=== PATIENT | male | born 1945 | race Caucasian/White ===

== ENCOUNTER 2018-01-05 09:14 | Day surgery (SDC) | payer MEDICARE ==
[~2018-01-05] VITALS: Ht 182.9 cm; Wt 79.2 kg
[~2018-01-05 09:14] MED LIST: ACEDIPPM PO; ALBU90OI; AMLO5 PO; ASCO500; ASCO500 PO; ASPI325 PO; ATOR10 PO; Amlodipine Besyl5 MG PO; Aspir 8181 MG PO; B Complex #11 EACH; CALCIUM-MAGNES1 EAC3 PO; CARV6.25 PO; CLOP75 PO; CYCL10 PO; Coreg6.25 MG PO; DIPH50 PO; Daily Multiple1 EACH PO; FISH OIL 1,0001 EAC1; FISH1000 PO; FLAX PO; GABA300 PO; GABA600 PO; GARLIC PO; Garlic X400 MG PO; LOSARTAN POTASS50 MG PO; MORP15ER PO; MULVITMIND PO; NEBI5 PO; NITR.4TPA TOP; OMEG1CAP30 PO; OMEP20ER PO; OXYC10ER PO; OXYC5 PO; POTASSIUM99 MG; ROSU5 PO; TIOT18; UBID100 PO; VITAMIN D32000 UNIT PO; VITB100 PO
== END 2018-01-05 11:25 | disposition home or self-care (01) ==
LOC: ORSCSDS 09:14
PROVIDERS: Surgery
PROC: 0DBP8ZX Excision of Rectum, Via Natural or Artificial Opening Endoscopic, Diagnostic (ICD-10-PCS; principal; 2018-01-05 10:30)
PROC: 0DBM8ZX Excision of Descending Colon, Via Natural or Artificial Opening Endoscopic, Diagnostic (ICD-10-PCS; principal; 2018-01-05 10:30)
PROC: 0DBK8ZX Excision of Ascending Colon, Via Natural or Artificial Opening Endoscopic, Diagnostic (ICD-10-PCS; principal; 2018-01-05 10:30)
DX: Z12.11 Encounter for screening for malignant neoplasm of colon (principal); D12.2 Benign neoplasm of ascending colon; D12.4 Benign neoplasm of descending colon; K62.1 Rectal polyp; Z86.010 Personal history of colon polyps; I10 Essential (primary) hypertension; E78.5 Hyperlipidemia, unspecified; I25.10 Atherosclerotic heart disease of native coronary artery without angina pectoris; I73.9 Peripheral vascular disease, unspecified; J44.9 Chronic obstructive pulmonary disease, unspecified; Z79.01 Long term (current) use of anticoagulants; Z79.82 Long term (current) use of aspirin; Z79.899 Other long term (current) drug therapy; F17.210 Nicotine dependence, cigarettes, uncomplicated
CPT/HCPCS: 88305

== ENCOUNTER → 2018-06-21 | Outpatient (CLI) | payer MEDICARE ==
[2018-06-21 20:01] LABS: Alanine Aminotransfer (ALT/SGP 17 U/L (12-78); Albumin, Blood 3.6 g/dL (3.4-5.0); Albumin/Globulin Ratio 0.9 (0.8-1.8); Alk Phos 100 U/L (50-136); Anion Gap 5 mmol/L (6-16); Aspartate Aminotrans (AST/SGOT 15 U/L (12-37); Bilirubin, Total 0.3 mg/dL (0.1-1.0); Blood Urea Nitrogen 12 mg/dL (8-24); CHOL/HDL RATIO 6.8; CO2, Blood 28 mmol/L (21-32); Calcium, Blood 8.6 mg/dL (8.5-10.1); Chloride, Blood 103 mmol/L (98-108); Cholesterol 177 mg/dL (50-200); Globulin, Blood 3.9 g/dL (2.2-4.0); Glucose, Blood 84 mg/dL (70-99); HDL Cholesterol 26 mg/dL (>39); LDL/HDL RATIO 3.3; Low Density Lipoprotein Chol 85 mg/dL (0-110); Potassium, Blood 4.1 mmol/L (3.5-5.5); Sodium, Blood 136 mmol/L (136-145); Total Protein, Blood 7.5 g/dL (6.4-8.2); Triglycerides 328 mg/dL (30-160); Very Low Density Lipoprot Chol 65 mg/dL (6-32)
[2018-06-21 20:02] LABS: Bun/Creatinine Ratio 11.9 (12.0-20.0); Creatinine, Blood 1.01 mg/dL (0.60-1.20); Glomerular Filtration Rate >60 (60-)
== END | disposition home or self-care (01) ==
LOC: LAB SHORT 17:36 → LAB 17:36
PROVIDERS: Nurse Practitioner Family
DX: I25.10 Atherosclerotic heart disease of native coronary artery without angina pectoris (principal); E11.9 Type 2 diabetes mellitus without complications
CPT/HCPCS: 80053; 80061

== ENCOUNTER 2018-07-25 06:29 | Inpatient (IN) | payer MEDICARE ==
[~2018-07-25] VITALS: Ht 182.9 cm; Wt 78.0 kg
[2018-07-25] MEDS ORDERED: OXYC5 PO (06:50)
[2018-07-25 07:28] LABS: BASOPHILS ABSOLUTE AUTO 0.05 K/mm3 (0.00-0.23); BASOPHILS PERCENT AUTO 1 % (0-2); EOSINOPHILS ABSOLUTE AUTO 0.21 K/mm3 (0.00-0.68); EOSINOPHILS PERCENT AUTO 2 % (0-6); Hematocrit 40.6 % (37.0-53.0); Hemoglobin 13.4 g/dL (13.5-17.5); IMMATURE GRAN ABSOLUTE AUTO 0.05 K/mm3 (0.00-0.10); IMMATURE GRAN PERCENT AUTO 1 % (0-1); LYMPHOCYTES ABSOLUTE AUTO 3.47 K/mm3 (0.84-5.20); LYMPHOCYTES PERCENT AUTO 35 % (21-46); MONOCYTES ABSOLUTE AUTO 0.81 K/mm3 (0.16-1.47); MONOCYTES PERCENT AUTO 8 % (4-13); Mean Corpuscular HGB 30.3 pg (26.0-34.0); Mean Corpuscular Volume 92 fL (80-100); Mean Platelet Volume 9.9 fL (9.1-12.4); NEUTROPHILS ABSOLUTE AUTO 5.42 K/mm3 (1.96-9.15); NEUTROPHILS PERCENT AUTO 54 % (41-73); Platelet Count 293 K/mm3 (150-400); RDW Coefficient Variation 12.4 % (11.7-14.2); RDW Standard Deviation 41.9 fL (35.1-46.3); Red Blood Cell Count 4.42 M/mm3 (4.30-5.90); White Blood Cell Count 10.01 K/mm3 (4.00-11.30)
[2018-07-25 07:34] LABS: Alanine Aminotransfer (ALT/SGP 14 U/L (12-78); Albumin, Blood 3.5 g/dL (3.4-5.0); Albumin/Globulin Ratio 0.9 (0.8-1.8); Alk Phos 89 U/L (50-136); Anion Gap 7 mmol/L (6-16); Aspartate Aminotrans (AST/SGOT 20 U/L (12-37); Bilirubin, Total 0.4 mg/dL (0.1-1.0); Blood Urea Nitrogen 14 mg/dL (8-24); Bun/Creatinine Ratio 12.8 (12.0-20.0); CO2, Blood 28 mmol/L (21-32); Calcium, Blood 8.5 mg/dL (8.5-10.1); Chloride, Blood 106 mmol/L (98-108); Creatinine, Blood 1.09 mg/dL (0.60-1.20); Globulin, Blood 3.8 g/dL (2.2-4.0); Glomerular Filtration Rate >60 (60-); Glucose, Blood 113 mg/dL (70-99); Sodium, Blood 141 mmol/L (136-145); Total Protein, Blood 7.3 g/dL (6.4-8.2); Troponin I 0.158 ng/mL (0.000-0.040)
[2018-07-25 08:40] LABS: International Normalized Ratio 0.99; Prothrombin Time Results 10.5 Sec (9.7-11.5)
--- NOTE | 2018-07-25 09:37 | NUR ---
ADMIT FROM ER PT ARRIVED VIA RNATALIE AFTER RECEIVING REPORT FROM [facility]. PT ALERT AND IN NO DISCOMFORT. CONTINUE POT.
[2018-07-25] MEDS ORDERED: TIOT18 INH (10:13)
[2018-07-25 12:59] LABS: Creatine Kinase MB 1.4 ng/mL (0.0-3.6); Creatine Kinase MB Index 1.8 (0.0-4.0); Troponin I 0.263 ng/mL (0.000-0.040)
--- NOTE | 2018-07-25 17:36 | NUR ---
EVENINGNOTE PT SITTING ON THE SIDE OF THE BED. SR. PT HAS DENIED CHEST PAIN ALL DAY. HEPARIN GTT INFUSING AT 15 UNITS/KG/HR. PHARMACY TO MANAGE. PT UP AD ALYSIA IN ROOM. HE DID CONSENT WITH DR WATKINS TO AN ANGIOGRAM TOMORROW. NURSING COMMERCIAL CARPENTER AWARE. VSS. PT VERY ANXIOUS. AT HOME HE TAKES HIS BP EVERY HOUR WHILE AWAKE. PT DOESN'T LIKE THE HOSPITALS FOOD. CONTINUE POT.
[2018-07-25 19:05] LABS: Creatine Kinase MB 1.3 ng/mL (0.0-3.6); Creatine Kinase MB Index 1.8 (0.0-4.0); Troponin I 0.298 ng/mL (0.000-0.040)
--- NOTE | 2018-07-25 20:54 | NUR ---
PCU NIGHTSHIFT ASSUMED CARE OF PT APPROX. 1900. PT A&O X4. ASSESSMENT COMPLETED. VITAL SIGNS STABLE. PT UP IN CHAIR AT THIS TIME. HEPARIN DRIP CURRENTLY RUNNING PER EMAR. PT REPORTS LEG PAIN AT THIS TIME PRN PAIN MEDICATION GIVEN PER EMAR. BILAT. FEET SLIGHT PURPLE COLOR WHICH PT REPORTS IS BASELINE FOR HIM. REINFORCED EDUCATION ON NPO AT MIDNIGHT AND ANSWERED QUESTIONS. PT REMAINS IN CHAIR AT THIS TIME. CALL LIGHT IN REACH AND PT DENIES ANY NEEDS.
--- NOTE | 2018-07-26 05:40 | NUR ---
SHIFT SUMMARY PT PLEASANT, COOPERATIVE AND USES CALL LIGHT APPROPRIATELY. PT REMAINED A&O X4 FOR DURATION OF SHIFT. VITAL SIGNS STABLE. HEART RHYTHM RANGING FROM NSR- SINUSBRADY ON OCCASION. PT ABLE TO AMBUALTE TO BATHROOM NEEDED AND TOLERATED WELL. PT HAD INCREASED PAIN IN LEFT LEG ON OCCASION AND PRN PAIN MEDICATION WAS GIVEN PER EMAR. HEPARIN DRIP REMAINS IN PLACE AND RUNNING. BED IN LOW POSITION, CALL LIGHT IN REACH AND PT DENIES ANY NEEDS AT THIS TIME. WILL CONTINUE TO MONITOR UNTIL HANDOFF TO DAYSHIFT RN.
[2018-07-26 05:46] LABS: BASOPHILS ABSOLUTE AUTO 0.05 K/mm3 (0.00-0.23); BASOPHILS PERCENT AUTO 1 % (0-2); EOSINOPHILS ABSOLUTE AUTO 0.13 K/mm3 (0.00-0.68); EOSINOPHILS PERCENT AUTO 1 % (0-6); Hematocrit 37.6 % (37.0-53.0); Hemoglobin 12.5 g/dL (13.5-17.5); IMMATURE GRAN ABSOLUTE AUTO 0.05 K/mm3 (0.00-0.10); IMMATURE GRAN PERCENT AUTO 1 % (0-1); LYMPHOCYTES ABSOLUTE AUTO 3.44 K/mm3 (0.84-5.20); LYMPHOCYTES PERCENT AUTO 32 % (21-46); MONOCYTES ABSOLUTE AUTO 0.82 K/mm3 (0.16-1.47); MONOCYTES PERCENT AUTO 8 % (4-13); Mean Corpuscular HGB Conc 33.2 g/dL (31.5-36.5); Mean Corpuscular Volume 90 fL (80-100); Mean Platelet Volume 9.9 fL (9.1-12.4); NEUTROPHILS ABSOLUTE AUTO 6.32 K/mm3 (1.96-9.15); NEUTROPHILS PERCENT AUTO 58 % (41-73); Platelet Count 250 K/mm3 (150-400); RDW Coefficient Variation 12.5 % (11.7-14.2); RDW Standard Deviation 40.9 fL (35.1-46.3); Red Blood Cell Count 4.16 M/mm3 (4.30-5.90); White Blood Cell Count 10.81 K/mm3 (4.00-11.30)
[2018-07-26 06:08] LABS: Alanine Aminotransfer (ALT/SGP 12 U/L (12-78); Albumin, Blood 3.2 g/dL (3.4-5.0); Alk Phos 81 U/L (50-136); Anion Gap 7 mmol/L (6-16); Aspartate Aminotrans (AST/SGOT 14 U/L (12-37); Bilirubin, Total 0.5 mg/dL (0.1-1.0); Blood Urea Nitrogen 16 mg/dL (8-24); Bun/Creatinine Ratio 15.2 (12.0-20.0); CO2, Blood 27 mmol/L (21-32); Calcium, Blood 8.4 mg/dL (8.5-10.1); Chloride, Blood 107 mmol/L (98-108); Cholesterol 140 mg/dL (50-200); Creatinine, Blood 1.05 mg/dL (0.60-1.20); Globulin, Blood 3.3 g/dL (2.2-4.0); Glomerular Filtration Rate >60 (60-); Glucose, Blood 107 mg/dL (70-99); Magnesium, Blood 2.2 mg/dL (1.6-2.4); Phosphorus, Blood 3.3 mg/dL (2.5-4.9); Potassium, Blood 3.8 mmol/L (3.5-5.5); Sodium, Blood 141 mmol/L (136-145); Total Protein, Blood 6.5 g/dL (6.4-8.2); Triglycerides 125 mg/dL (30-160); Very Low Density Lipoprot Chol 25 mg/dL (6-32)
[2018-07-26 06:10] LABS: HDL Cholesterol 28 mg/dL (>39); LDL/HDL RATIO 3.1; Low Density Lipoprotein Chol 87 mg/dL (0-110)
--- NOTE | 2018-07-26 06:43 | NUR ---
UPDATE HEART CENTER STAFF IN TO SEE PT THIS MORNING. STAFF TOOK PT FOR ANGIO. APPROX. 0640. NO S/SX OF ACUTE DISTRESS UPON DEPARTURE OF UNIT, ESCORTED BY HEART CENTER STAFF.
--- NOTE | 2018-07-26 07:38 | NUR ---
AM NOTE PT TRANSFERED TO HEART CENTER EARLY AM. CURRENTLY STILL THERE. CONTINUE POT.
--- NOTE | 2018-07-26 08:38 | NUR ---
POST ANGIOGRAM PT ARRIVED VIA BED AWAKE AND ALERT. PT HAS DEVEKLOPED CHEST PAIN S/P RCA STENT. DR WATKINS AWARE. BEDSIDE REPORT RECEIVED. SB ON MONITOR. RIGHT GROIN CD&I. PT ABLE TO DRINK LAYING FLAT. GAVE HIM HIS CARDIAC MEDCIATIONS. HELD VITAMENS UMTIL AFTER HIS BEDREST IS COMPLETED THIS AFTERNOON AND HE CAN EAT. CONTINUE POT.
--- NOTE | 2018-07-26 08:53 | NUR ---
ANGIOGRAM RECOVERY PT ALERT. IS REPEATING THE SAME QUESTION FREQUENTLY. PT CONTINUES TO REPORT CHEST PAIN 4/10 THAT DOES IMPROVE WITH DEEP BREATH. ORDERED EKG DONE. RIGHT GROIN CD&I. CMS TO RIGHT FOOT WNL FOR PT. DIMISHED SENSATION IS WNL FIR HIM. SPO2 PROBE TO RIGHT GREAT TOE. BALNKET OVER RIGHT KNEE TO REMIND PT NOT TO MOVE HIS RIGHT LEG DURING RECOVERY PERIOD. MEDICATED WITH OXYCODONE WITH AM MEDICATIONS. CONTINUE POT.
--- NOTE | 2018-07-26 12:41 | NUR ---
Echocardiogram completed.
--- NOTE | 2018-07-26 15:01 | NUR ---
post recovery note PT SITTING ONT HE SIDE OF THE BED. RIGHT GROIN CD&I. TRAY NOW REQUESTED FOR HIM. FAMILY AT BEDSIDE. PT DENIES CHEST PAIN AT THIS TIME. MEDICATED WITH OXYCODONE PRIOR TO BEDREST FINISHING. PT AMBUALTED INTO BATHROOM WITH SBA. GAIT STEADY. VOIDED. NO DIZZINESS. CONTINUE POT.
--- NOTE | 2018-07-26 18:40 | NUR ---
EVENING NOTE PT UP MOVING AROUND. RIGHT GROIN SITE WNL. NO HEMATOMA OR SWELLING NOTED. VSS. PT AGREED TO TAKE HIS MS CONTIN BUT REFUSED HIS GABAPENTIN. PT HAS WALKED OUT INTO THE HALLWAY REPEATEDLY THINKING DR WATKINS WAS THERE TO SEE HIM. SON IS AT BEDSIDE VISITING. PT CHEST PAIN HAS RESOLVED. PT CONTINUES TO MAKE SEXUALLY DEROGITORY COMMENTS TO THE YOUNG FEMALE STAFF. CONTINUE POT.
--- NOTE | 2018-07-26 19:45 | NUR ---
ASSUMED CARE PT SITTING UP IN ROOM TALKING WITH FAMILY. PER DAY SHIFT PT WAS AGGITATED T/O DAY. PT IN ROOM APPEARS COOPERATIVE WITH CARE AND POLITE TO THIS RN. INDEPENDENT IN ROOM. GROIN SITE WNL, TEG IN PLACE. NO HEMATOMAS NOTED. RESP EVEN UNLABORED. PT REPORTS PAIN UNDER CONTROL AT THIS TIME. REPORTS WILL CALL FOR PAIN MED WHEN NEEDED. CALL LIGHT IN REACH.
[2018-07-27 04:11] LABS: Hematocrit 35.1 % (37.0-53.0); Hemoglobin 11.6 g/dL (13.5-17.5); Mean Corpuscular HGB 30.4 pg (26.0-34.0); Mean Corpuscular Volume 92 fL (80-100); Mean Platelet Volume 9.9 fL (9.1-12.4); Platelet Count 225 K/mm3 (150-400); RDW Coefficient Variation 12.7 % (11.7-14.2); RDW Standard Deviation 43.1 fL (35.1-46.3); Red Blood Cell Count 3.81 M/mm3 (4.30-5.90)
[2018-07-27 04:43] LABS: Albumin, Blood 2.9 g/dL (3.4-5.0); Anion Gap 7 mmol/L (6-16); Blood Urea Nitrogen 15 mg/dL (8-24); Bun/Creatinine Ratio 14.3 (12.0-20.0); CO2, Blood 26 mmol/L (21-32); Calcium, Blood 7.8 mg/dL (8.5-10.1); Chloride, Blood 110 mmol/L (98-108); Creatinine, Blood 1.05 mg/dL (0.60-1.20); Glomerular Filtration Rate >60 (60-); Glucose, Blood 96 mg/dL (70-99); Phosphorus, Blood 2.9 mg/dL (2.5-4.9); Sodium, Blood 143 mmol/L (136-145)
--- NOTE | 2018-07-27 05:22 | NUR ---
SHIFT SUMMARY PT SLEEPING IN ROOM COMFORTABLY. PT HAS SLEPT WELL T/O NIGHT. MILD PAIN REPORTED AND MEDICATED PER EMAR. NO ACUTE CHANGES IN STATUS. PT HAS BEEN INDEPENDENT IN ROOM. GROIN SITE CDI. NO HEMATOMAS NOTED. RESP EVEN UNLABORED ON RA. CALL LIGHT WITHIN REACH.
[2018-07-27] MEDS ORDERED: ATOR80 PO (11:13)
[2018-07-27] MEDS ORDERED: Isosorbide Mono60 MG PO (11:15)
[2018-07-27] MEDS ORDERED: Nicoderm Cq1 EAC1 TD (11:43)
== END 2018-07-27 12:25 | disposition home or self-care (01) | DRG 249 ==
LOC: ER 06:29 → PCU 09:04
PROVIDERS: Physician Assistant; ADMIT Internal Medicine
PROC: 4A023N7 Measurement of Cardiac Sampling and Pressure, Left Heart, Percutaneous Approach (ICD-10-PCS; principal; 2018-07-26)
PROC: 02703DZ Dilation of Coronary Artery, One Artery with Intraluminal Device, Percutaneous Approach (ICD-10-PCS; 2018-07-26)
PROC: B211YZZ Fluoroscopy of Multiple Coronary Arteries using Other Contrast (ICD-10-PCS; 2018-07-26)
DX: I21.4 Non-ST elevation (NSTEMI) myocardial infarction (principal); I10 Essential (primary) hypertension; I25.10 Atherosclerotic heart disease of native coronary artery without angina pectoris; J44.9 Chronic obstructive pulmonary disease, unspecified; F17.210 Nicotine dependence, cigarettes, uncomplicated; G89.4 Chronic pain syndrome; G62.9 Polyneuropathy, unspecified; K21.9 Gastro-esophageal reflux disease without esophagitis
CPT/HCPCS: 36247; 36415; 71046; 75710; 75774; 80053; 80061; 80069; 82550; 82553; 83036; 83735; 84100; 84484; 85025; 85027; 85610; 85730; 92928; 93005; 93010; 93306; 93458; 94640; 94760; 96374; 99152; 99153; 99285-25; C1757; C1760; C1769; C1876; C1887; J0360; J1644; J2250; J3010; J7030; Q9967

== ENCOUNTER 2020-12-27 21:45 | Inpatient (IN) | payer MEDICARE ==
[~2020-12-27] VITALS: Ht 182.9 cm; Wt 77.0 kg
[~2020-12-27 21:45] MED LIST changes: +ATOR40TA PO; -CALCIUM-MAGNES1 EAC3 PO; +CALCIUM-MAGNES1 EAC9 PO; -Daily Multiple1 EACH PO; +ISOSORBIDE MONO60 MG PO; +LOSA50 PO; -LOSARTAN POTASS50 MG PO; +MULVITA PO; +Nicoderm Cq1 EAC1 TOP; +TIOT18 INH
[2020-12-27 22:12] LABS: BASOPHILS ABSOLUTE AUTO 0.04 K/mm3 (0.00-0.23); BASOPHILS PERCENT AUTO 0 % (0-2); EOSINOPHILS ABSOLUTE AUTO 0.13 K/mm3 (0.00-0.68); EOSINOPHILS PERCENT AUTO 1 % (0-6); Hematocrit 36.6 % (37.0-53.0); Hemoglobin 12.2 g/dL (13.5-17.5); IMMATURE GRAN ABSOLUTE AUTO 0.08 K/mm3 (0.00-0.10); IMMATURE GRAN PERCENT AUTO 1 % (0-1); LYMPHOCYTES ABSOLUTE AUTO 2.19 K/mm3 (0.84-5.20); LYMPHOCYTES PERCENT AUTO 17 % (21-46); MONOCYTES PERCENT AUTO 7 % (4-13); Mean Corpuscular HGB 29.9 pg (26.0-34.0); Mean Corpuscular HGB Conc 33.3 g/dL (31.5-36.5); Mean Corpuscular Volume 90 fL (80-100); NEUTROPHILS ABSOLUTE AUTO 9.85 K/mm3 (1.96-9.15); NEUTROPHILS PERCENT AUTO 75 % (41-73); Platelet Count 253 K/mm3 (150-400); RDW Standard Deviation 42.6 fL (35.1-46.3); Red Blood Cell Count 4.08 M/mm3 (4.30-5.90); White Blood Cell Count 13.19 K/mm3 (4.00-11.30)
[2020-12-27 22:26] LABS: Alanine Aminotransfer (ALT/SGP 16 U/L (12-78); Albumin, Blood 3.5 g/dL (3.4-5.0); Albumin/Globulin Ratio 0.9 (0.8-1.8); Alk Phos 101 U/L (50-136); Anion Gap 8 mmol/L (6-16); Aspartate Aminotrans (AST/SGOT 14 U/L (12-37); Bilirubin, Total 0.2 mg/dL (0.1-1.0); Blood Urea Nitrogen 18 mg/dL (8-24); Bun/Creatinine Ratio 12.3 (12.0-20.0); CO2, Blood 25 mmol/L (21-32); Calcium, Blood 8.4 mg/dL (8.5-10.1); Chloride, Blood 107 mmol/L (98-108); Creatinine, Blood 1.46 mg/dL (0.60-1.20); Glomerular Filtration Rate 50 (60-); Glucose, Blood 127 mg/dL (70-99); Potassium, Blood 4.2 mmol/L (3.5-5.5); Sodium, Blood 140 mmol/L (136-145); Total Protein, Blood 7.5 g/dL (6.4-8.2); Troponin I <0.015 ng/mL (0.000-0.040)
[2020-12-28 00:31] LABS: Mean Platelet Volume 9.7 fL (9.1-12.4); Platelet Count 241 K/mm3 (150-400)
[2020-12-28 00:47] LABS: International Normalized Ratio 0.98; Prothrombin Time Results 10.6 Sec (9.7-11.5)
--- NOTE | 2020-12-28 05:46 | NUR ---
ELECTRONIC PUBLISHING SPECIALIST SUMMARY PT IS AXO X4. PT HAS DENIED ANY CP OR PRESSURE SINCE ARRIVING TO PCU. PT DID REPORT SLIGHT NAUSEA AFTER PAIN MEDICATED DELIVERY FOR CHRONIC L LEG PAIN. HEPARIN GTT RUNNING UNINTERUPTED THIS SHIFT. PT HAS MAINTAINED O2 SATS >92% ON RM AIR. PT HAD ONE WATERY BM THIS SHIFT. PT RESTING COMFORTABLY IN BED FOR MOST OF SHIFT. PT DOES HAVE VENOUS ULCER ON BOTTOM OF HIS L FOOT. PICS IN CHART. WILL REPORT TO ONCOMING RN.
--- NOTE | 2020-12-28 07:29 | NUR ---
pt sitting up on the side of the bed, denies c.p. but is complaining of restless legs and hasn't been able to sleep due to that, states the chest pain comes and goes, lungs are clear but dim t/0, resp even and unlabored, on r/a, no cough noted, hrr, running sr with pvc's, piv is clear and patent, on heperin gtt, pt reports voiding without diff, had two loose stools last night, skin has pvd looking dk skin to b/l lower ext, he reports he stepped on a piece of metal that went through his shoe and punctured his left foot, wound has a bandaid on it at this time, scant drainage, maew, weak, mackenzie, call light in reach.
[2020-12-28 08:12] LABS: BASOPHILS ABSOLUTE AUTO 0.05 K/mm3 (0.00-0.23); BASOPHILS PERCENT AUTO 0 % (0-2); EOSINOPHILS PERCENT AUTO 1 % (0-6); Hematocrit 37.4 % (37.0-53.0); Hemoglobin 12.8 g/dL (13.5-17.5); IMMATURE GRAN ABSOLUTE AUTO 0.06 K/mm3 (0.00-0.10); IMMATURE GRAN PERCENT AUTO 0 % (0-1); LYMPHOCYTES PERCENT AUTO 17 % (21-46); MONOCYTES PERCENT AUTO 6 % (4-13); Mean Corpuscular HGB 29.8 pg (26.0-34.0); Mean Corpuscular HGB Conc 34.2 g/dL (31.5-36.5); Mean Corpuscular Volume 87 fL (80-100); Mean Platelet Volume 9.8 fL (9.1-12.4); NEUTROPHILS ABSOLUTE AUTO 10.36 K/mm3 (1.96-9.15); NEUTROPHILS PERCENT AUTO 75 % (41-73); Platelet Count 267 K/mm3 (150-400); RDW Standard Deviation 41.1 fL (35.1-46.3); White Blood Cell Count 13.77 K/mm3 (4.00-11.30)
[2020-12-28 08:34] LABS: Alanine Aminotransfer (ALT/SGP 18 U/L (12-78); Albumin, Blood 3.5 g/dL (3.4-5.0); Albumin/Globulin Ratio 0.9 (0.8-1.8); Alk Phos 106 U/L (50-136); Anion Gap 8 mmol/L (6-16); Aspartate Aminotrans (AST/SGOT 13 U/L (12-37); Bilirubin, Total 0.4 mg/dL (0.1-1.0); Blood Urea Nitrogen 16 mg/dL (8-24); Bun/Creatinine Ratio 14.2 (12.0-20.0); CO2, Blood 24 mmol/L (21-32); Calcium, Blood 8.8 mg/dL (8.5-10.1); Chloride, Blood 110 mmol/L (98-108); Creatinine, Blood 1.13 mg/dL (0.60-1.20); Glomerular Filtration Rate >60 (60-); Glucose, Blood 126 mg/dL (70-99); Potassium, Blood 4.1 mmol/L (3.5-5.5); Sodium, Blood 142 mmol/L (136-145); Total Protein, Blood 7.5 g/dL (6.4-8.2)
--- NOTE | 2020-12-28 11:36 | NUR ---
ECHOCARDIOGRAM COMPLETE
--- NOTE | 2020-12-28 18:54 | NUR ---
pt appeared to be going through w/d this am, restarted him on his roxycodone, he improved, plan for angio in am, npo after mid, pt understands, he is wanting his pain meds every three hrs instead of every four, no further changes this shift, call light in reach.
--- NOTE | 2020-12-29 05:37 | NUR ---
LAB COURIER SUMMARY THIS RN ASSUMED CARE OF THIS PT FROM REESE RN. PT DENYING ANY CP OR PRESSURE SINCE THIS RN ASSUMED CARE. PT DID REPORT SEVERE PAIN IN HIS L LEG WHICH IS CHRONIC. PT VERY UPSET THAT HIS PAIN MEDICATIONS ARE Q4H AND NOT Q3H LIKE HE TAKES AT HOME. THIS RN TOLD THE PT THAT I WOULD RELAY THIS TO THE DAYSHIFT RN AND SHE COULD SEE IF THE DOCTOR WOULD CHANGE IT TO Q3H, PT APPRECIATED THIS AND APPEARED LESS ANGRY. PT SLEEPING COMFORTABLY IN BED. TELE SHOWING NSR/SB 50-60'S. WILL REPORT TO ONCOMING RN.
--- NOTE | 2020-12-29 19:18 | NUR ---
SHIFT NOTE TR BAND TO LT RADIAL IS FULLY RECOVERED. PT WITH NO BLEEDING NOTED. PAIN WELL MANAGED T/O THE DAY WITH FREQUENCY CHANGE. PT ALSO TREATED WITH TUMS PRILOSEC FOR HEART BURN. VSS. PT WILL BE NPO AT MIDNIGHT FOR PROCEDURE IN THE AM. DR REID AWARE OF HEART BURN.
--- NOTE | 2020-12-29 20:11 | NUR ---
no heparin confirmed THIS RN CONTACTED DR. REID AND CONFIRMED THAT THE PT DID NOT NEED TO BE ON A HEPARIN GTT BEFORE TOMMOROW'S ANGIO. PROVIDER CONFIRMED THIS WAS CORRECT.
--- NOTE | 2020-12-30 04:26 | NUR ---
NAUSEA AND NECK PAIN PT HAD C/O NECK AND STOMACH PAIN THAT WAS UNRESOLVED W ZOFRAN. PT HAS HAD ELEVATED BP THIS SHIFT SBP >170. FIRST NITRO GIVEN AT 0426. PT REPORTS RESOLUTION OF PAIN AND NAUSEA AFTER ONE NITRO TAB GIVEN. REPEAT BP 108/54. WCTM
[2020-12-30 04:34] LABS: Anion Gap 5 mmol/L (6-16); Blood Urea Nitrogen 12 mg/dL (8-24); CO2, Blood 26 mmol/L (21-32); Calcium, Blood 8.9 mg/dL (8.5-10.1); Chloride, Blood 108 mmol/L (98-108); Creatinine, Blood 0.93 mg/dL (0.60-1.20); Glomerular Filtration Rate >60 (60-); Glucose, Blood 120 mg/dL (70-99); Potassium, Blood 3.7 mmol/L (3.5-5.5); Sodium, Blood 139 mmol/L (136-145)
--- NOTE | 2020-12-30 05:58 | NUR ---
NOTEMAN SUMMARY PT HAD ONE EPISODE OF OF ANGINA THAT HE DESCRIBED MOSTLY NECK PAIN, NAUSEA AND A SENSE OF PANIC. PT GIVEN ONE NITRO TAB AND SYMPTOMS RESOLVED W SIGNIFICANT DROP IN BP, SEE PREVIOUS NOTE. PT BP ELEVATED W SYSTOLIC HIGH 186 SO PROVIDER CONTACTED AND ORDER FOR HYDRALAZINE OBTAINED AND GIVEN W LITTLE EFFECTS ON BP. PT MAINTAINED O2 SATS >92% ON RM AIR. PT MUCH HAPPIER W PAIN CONTROL NOW THAT IT IS Q3H NOT Q4H. PT NPO SINCE MIDNIGHT IN ANTICIPATION FOR COMMERCIAL PAINTER TODAY. OP SITE ON L RADIAL SITE HAS REMAINED C/D/I W NO S/S OF BLEEDING OR HEMATOMAM ARMBOARD ON ALL SHIFT. TELE SHOWING SR/SB 50-60'S. WILL REPORT TO ONCOMING RN.
--- NOTE | 2020-12-30 14:41 | NUR ---
1225: PT TO ICU 6 FROM AUTISM TEACHER WITH NEW R RADIAL ACCESS AND R GROIN SHEATH IN PLACE, PT SUPINE IN BED WITH RLE FLAT. R WRIST WITH TR BAND IN PLACE, SITE WNL, R HAND WARM, SENSATION INTACT, RADIAL PULSE PALPABLE, SPO2 WAVEFORM WNL. R GROIN WITH SHEATH IN PLACE, SMALL AMOUNT OF OOZING FROM SITE, MANUAL PRESSURE HELD UNTIL HEMOSTASIS. RLE WARM WITH PEDAL PULSES PRESENT, PT HAS CHRONIC PVD WITH DISCOLORATION AND NUMT TO BILAT FEET, SENSATION BASELINE, MOVEMENT INTACT. L RADIAL ACCESS SITE FROM YESTERDAY'S DIAGNOSTIC ANGIO WNL, DRESSING CDI. BILAT WRIST IMMOBILIZERS IN PLACE. PT DROWSY BUT ORIENTED AND APPROPRIATE, COOPERATIVE WITH CARE, ANSWERS QUESTIONS APPROPRIATELY. RATES CHEST PAIN 2/10, DENIES RADIATION TO JAW OR ARM, NITRO GTT AT 5MCG/MIN. DENIES SOB AND NAUSEA. SBP 150, HR 50'S SBR. LS WITH FINE EXPIRATORY WHEEZES, SPO2 >95% ON RA, PT DENIES SOB. EKG COMPLETED, LABS DRAWN, SECOND IV INSERTED, NS INFUSING AT 125ML/HR. AWAITING PTT RESULTS TO REMOVE TR BAND AND GROIN SHEATH.
--- NOTE | 2020-12-30 15:30 | NUR ---
UPDATE R GROIN SITE RESUMED OOZING DESPITE HOLDING MANUAL PRESSURE TWO SEPARATE TIMES. DRESSING REPLACED WITH FRANK, GAUZE FOR PRESSURE, AND TEGADERM. WILL CONTINUE TO MONITOR. OXYCODONE ADMINISTERED, PT RATES BLE PAIN 2/10 AND CP 2/10, NTG GTT REMAINS AT 5MCG/MIN, BP STABLE.
--- NOTE | 2020-12-30 16:11 | NUR ---
UPDATE ON CP PT HAS BEEN REPORTING CP 2-3 SINCE RETURN FROM TOUR BUS DRIVER. NTG GTT INCREASED TO 10MCG/MIN WITH NO CHANGE IN CHEST PAIN. BP WNL, NTG REMAINS AT 10MCG. PTT RESULT >139, R GROIN SHEATH AND R TR BAND REMAIN IN PLACE, PTT REDRAWN AT 1600. TR BAND SITE RE-ASSESSED AT 1620, FOUND TO HAVE HEMATOMA HALF WAY UP FOREARM WHICH WAS NOT PRESENT AT IV INSERTION OR AT LAST TR BAND SITE CHECK. BP CUFF APPLIED AND INFLATED TO 110MM HG, GOOD SPO2 WAVEFORM. SOCK MENDER AT BEDSIDE TO ASSESS HEMATOMA.
--- NOTE | 2020-12-30 16:43 | NUR ---
UPDATE - HEMATOMA DR. REID AT BEDSIDE AT THIS TIME TO VISUALIZE GROIN SITE AND R FOREARM HEMATOMA. BP CUFF REMOVED, 4ML AIR ADDED TO TR BAND BY DR. REID, BP CUFF REMAINS OFF. PT HAS GOOD PULSES AND SPO2 WAVEFORM TO RUE, HAND COOL BUT WITH SENSATION INTACT. WILL APPLY HEAT AND CONTINUE TO MONITOR. R GROIN SITE WITH SMALL AMOUNT OF OOZING SINCE DRESSING CHANGE, DR. REID STATES THIS IS OK AND NOT TO USE FEMOSTOP DEVICE. WILL CONTINUE TO MONITOR.
--- NOTE | 2020-12-30 17:11 | NUR ---
UPDATE R GROIN SITE CONTINUES TO OOZE, MANUAL PRESSURE HELD. MESSAGE LEFT FOR DR. REID, AWAITING CALL BACK FOR FURTHER INSTRUCTION.
[2020-12-30 18:18] LABS: BASOPHILS ABSOLUTE AUTO 0.04 K/mm3 (0.00-0.23); BASOPHILS PERCENT AUTO 0 % (0-2); EOSINOPHILS ABSOLUTE AUTO 0.07 K/mm3 (0.00-0.68); EOSINOPHILS PERCENT AUTO 1 % (0-6); Hematocrit 30.9 % (37.0-53.0); Hemoglobin 10.5 g/dL (13.5-17.5); IMMATURE GRAN ABSOLUTE AUTO 0.09 K/mm3 (0.00-0.10); IMMATURE GRAN PERCENT AUTO 1 % (0-1); LYMPHOCYTES ABSOLUTE AUTO 2.34 K/mm3 (0.84-5.20); LYMPHOCYTES PERCENT AUTO 17 % (21-46); MONOCYTES ABSOLUTE AUTO 1.02 K/mm3 (0.16-1.47); MONOCYTES PERCENT AUTO 7 % (4-13); Mean Corpuscular HGB 29.5 pg (26.0-34.0); Mean Corpuscular Volume 87 fL (80-100); NEUTROPHILS ABSOLUTE AUTO 10.41 K/mm3 (1.96-9.15); NEUTROPHILS PERCENT AUTO 75 % (41-73); Platelet Count 235 K/mm3 (150-400); RDW Coefficient Variation 13.1 % (11.7-14.2); RDW Standard Deviation 41.6 fL (35.1-46.3); Red Blood Cell Count 3.56 M/mm3 (4.30-5.90); White Blood Cell Count 13.97 K/mm3 (4.00-11.30)
--- NOTE | 2020-12-30 19:26 | NUR ---
END OF SHIFT SPOKE WITH DR. REID, NEW ORDERS FOR REPEAT LABS. DR. REID THEN CAME TO BEDSIDE, PT MEDICATED WITH 10MG PROTAMINE FOR PTT 124. GROIN SITE CONTINUES TO BLEED SLOWLY BUT STEADILY. PT MEDICATED WITH FENTANYL AND VERSED, NITRO GTT OFF AFTER SEDATION D/T SBP 90'S. GROIN SHEATH PULLED BY DR. REID, FEMOSTOP PLACED. UNABLE TO DOPPLE PEDAL PULSES WITH FEMOSTOP, SPO2 PLETH GOOD ON RLE, FEMOSTOP REMOVED AFTER APPROXIMATELY 5 MINUTES, MANUAL PRESSURE HELD UNTIL HEMOSTASIS. SITE MONITORED FOR ABOUT 10 MINUTES WITH AT BEDSIDE WITH NO RE BLEEDING, DRESSED WITH GAUZE AND TEGADERM. R PEDAL PULSES PRESENT WITH DOPPLER. R RADIAL SITE HEMATOMA IMPROVING WITH HEAT, AIR REMOVAL FROM TR BAND STARTED PER PROTOCOL AT 1845. PT DROWSY FROM MEDICATIONS BUT WAKES TO VOICE, ANSWERS QUESTIONS APPROPRIATELY, STATES CHEST PAIN REMAINS 2-3. REPORT TO SENIOR TALENT MANAGEMENT CONSULTANT.
--- NOTE | 2020-12-30 19:27 | NUR ---
PATIENT SLEEPING, AWAKENS TO SLIGHT STIMULI. VERBALIZED CHEST PAIN 2/10 NITRO DRIP OFF DUE TO HYPOTENSION. RIGHT WRIST SITE WITH CLEAR DRESSING SOFT NO HEMATOMA. LEFT WRIST WITH TR BAND, HEMATOMA TO FA ABOVE SITE, HEMATOMA SOFT AND WITHIN MARKING. RIGHT GROIN SITE WITH DRESSING CD&I AREA AROUND SITE SOFT. PULSES TO RIGHT DP 1+, LEFT DP 2+ BOTH WITH 3+ EDEMA.
--- NOTE | 2020-12-30 21:15 | NUR ---
PATIENT MORE AWAKE, C/O LOW BACK AND LEG PAIN CHRONIC IN NATURE. LOG ROLE AND EXTRA BLANKETS REMOVED AND PILLOWS PLACED UNDER KNEES. RIGHT GROIN SITE REMAINS SOFT WITH DRESSING CD&I. RIGHT RADIAL SITE SOFT TR BAND FULLY DEFLATED BUT IN PLACE. LEFT RADIAL SITE REMAINS SOFT WITH DRESSING CD&I. PATIENT REF DINNER AT THIS TIME, BELINDA PO WATER WITH MEDICATIONS WITHOUT DIFFICULTY.
--- NOTE | 2020-12-30 22:28 | NUR ---
DOCTOR JEANETTE NOTIFIED OF TROP I 1.53, NO CHANGE TO PATIENTS CP 2/10 AND RIGHT GROIN AND RIGHT WRIST SITE REMAIN STABLE. EXPECTED ELEVATED TROP I LEVELS POST PROCEDURE. NO NEW ORDERS AT THIS TIME.
--- NOTE | 2020-12-30 22:30 | NUR ---
PATIENT ABLE TO MOVE AROUND IN BED AND HOB POSITIONED SO PATIENT CAN EAT SNACK OF SANDWICH AND ORANGE SHERBET. RIGHT GROIN SITE REMAINS SOFT AFTER REPOSITIONING, AND RIGHT WRIST TR BAND OFF AND RADIAL SITE COVERED WITH CLEAR DRESSING. BRUISING REMANS BELOW AND ABOVE RADIAL SITE.
[2020-12-31 04:24] LABS: BASOPHILS ABSOLUTE AUTO 0.04 K/mm3 (0.00-0.23); BASOPHILS PERCENT AUTO 0 % (0-2); EOSINOPHILS PERCENT AUTO 1 % (0-6); Hematocrit 29.6 % (37.0-53.0); Hemoglobin 10.1 g/dL (13.5-17.5); IMMATURE GRAN ABSOLUTE AUTO 0.04 K/mm3 (0.00-0.10); IMMATURE GRAN PERCENT AUTO 0 % (0-1); LYMPHOCYTES ABSOLUTE AUTO 2.64 K/mm3 (0.84-5.20); LYMPHOCYTES PERCENT AUTO 22 % (21-46); MONOCYTES ABSOLUTE AUTO 1.01 K/mm3 (0.16-1.47); MONOCYTES PERCENT AUTO 8 % (4-13); Mean Corpuscular HGB 29.8 pg (26.0-34.0); Mean Corpuscular HGB Conc 34.1 g/dL (31.5-36.5); Mean Corpuscular Volume 87 fL (80-100); Mean Platelet Volume 9.9 fL (9.1-12.4); NEUTROPHILS ABSOLUTE AUTO 8.22 K/mm3 (1.96-9.15); NEUTROPHILS PERCENT AUTO 68 % (41-73); Platelet Count 216 K/mm3 (150-400); RDW Coefficient Variation 13.1 % (11.7-14.2); RDW Standard Deviation 42.4 fL (35.1-46.3); Red Blood Cell Count 3.39 M/mm3 (4.30-5.90); White Blood Cell Count 12.05 K/mm3 (4.00-11.30)
[2020-12-31 05:10] LABS: Anion Gap 6 mmol/L (6-16); Blood Urea Nitrogen 14 mg/dL (8-24); Bun/Creatinine Ratio 13.2 (12.0-20.0); CO2, Blood 23 mmol/L (21-32); Calcium, Blood 8.2 mg/dL (8.5-10.1); Chloride, Blood 110 mmol/L (98-108); Creatinine, Blood 1.06 mg/dL (0.60-1.20); Glomerular Filtration Rate >60 (60-); Glucose, Blood 82 mg/dL (70-99); Potassium, Blood 3.8 mmol/L (3.5-5.5); Sodium, Blood 139 mmol/L (136-145)
--- NOTE | 2020-12-31 06:30 | NUR ---
SUMMARY PATIENT SLEEPING MOST OF THE NIGHT, AWAKENS TO SLIGHT STIMULI. PATIENT VERBALIZED THAT HIS PAIN IS 1/10 TO HIS CHEST AND 2/10 TO BACK AND LEGS. ABLE TO REPOSITION SELF IN BED WITHOUT DIFFICULTY, AND UP TO BSC WITH 1 PERSON MIN ASSIST. RIGHT GROIN SITE REMAINS SOFT DRESSING CD&I. RIGHT RADIAL WRIST WITH NO CHANGE TO BRUISING SEEN. LEFT WRIST RADIAL SITE UNCHANGED AND STABLE T/O NIGHT.
--- NOTE | 2020-12-31 08:00 | NUR ---
ASSUMED CARE / DR GILLIS: REPORT RECEIVED FROM JUAN JOSE Pablo RN. ASSUMED CARE OF THIS PT AT APPROX 0700. ON ASSESSMENT, THE PT IS AWAKE, A&O TO ALL. HE STS HAVING SOME PAIN TO HIS LT FOOT THAT IS CHRONIC R/T PVD. PT ON RA W/ O2 SATS > 92%, EXP WHEEZING AT TIMES & PT STS TAKING SPIRIVA DAILY AT HOME. DENIES SOB. MONITOR SHOWS SR W/ HR 70s W/ OCCASIONAL PVCs, HTN W/ SCHEDULED MEDS PER EMAR THIS AM. NO GI COMPLAINTS, IS TOLERATING PO INTAKE WELL. VOIDS USING URINAL OR BSC W/O DIFFICULTY. SKIN CONDITION OVERALL CDI. ANGIOGRAM PUNCTURE SITES x3 - LT RADIAL SITE W/ TEGADERM IN PLACE, WNL. RT RADIAL SITE W/ TEGADERM IN PLACE, BRUISING NOTED FROM ELBOW DISTALLY TO PT's HAND, SWELLING OVERALL IMPROVED PER HIS REPORT. NO NEW BLEEDING, BRUISING OR HEMATOMA FORMATION NOTED. RT FEMORAL SITE W/ GAUZE IN PLACE, TEGADERM COVERING, SITE WNL. DR GILLIS AT BEDSIDE TO EVAL PT THIS MORNING. PAIN MEDS HAVE BEEN CHANGED FROM SCHEDULED TO PRN. SHE IS AGREEABLE TO A STATUS CHANGE FOR THIS PT IF DR REID ALSO AGREES. NO OTHER CHANGES AT THIS TIME. WILL CONTINUE TO MONITOR & UPDATE NEEDED.
[2020-12-31] MEDS ORDERED: METO25 PO (17:32)
[2020-12-31] MEDS ORDERED: OMEP20ER PO (17:33)
[2020-12-31] MEDS ORDERED: TICA90TA PO (17:34)
[2020-12-31] MEDS ORDERED: NITR.4SL SL (17:37)
--- NOTE | 2020-12-31 18:41 | NUR ---
DISCHARGE TO HOME: DR REID BACK IN UNIT THIS EVENING TO COMPLETE THIS PT's D/C HOME. ORDERS PLACED. MEDICATIONS CALLED TO [facility] IN [place], PT SENT W/ COUPON FOR ONE FREE MONTH OF [place]. D/C INSTRUCTIONS HAVE BEEN REVIEWED W/ THE PT & ALL QUESTIONS ANSWERED. PIVs & ALL MONITORS REMOVED. D/C PACKET, STENT CARD & ALL BELONGINGS TAKEN OUT W/ PT. PT TAKEN OUT OF UNIT VIA WC BY POOJA BELLE, AT APPROX 1810. ANGIOGRAM SITES x3 WNL AT TIME OF D/C HOME.
== END 2020-12-31 18:40 | disposition home or self-care (01) | DRG 247 ==
LOC: ER 21:45 → PCU 23:54 → ICUE 12-30 12:25
PROVIDERS: Emergency Medicine; Internal Medicine Cardiovascular Disease; ADMIT Internal Medicine
PROC: 4A023N7 Measurement of Cardiac Sampling and Pressure, Left Heart, Percutaneous Approach (ICD-10-PCS; principal; 2020-12-29)
PROC: B2151ZZ Fluoroscopy of Left Heart using Low Osmolar Contrast (ICD-10-PCS; 2020-12-29)
PROC: B2111ZZ Fluoroscopy of Multiple Coronary Arteries using Low Osmolar Contrast (ICD-10-PCS; 2020-12-29)
PROC: B2181ZZ Fluoroscopy of Left Internal Mammary Bypass Graft using Low Osmolar Contrast (ICD-10-PCS; 2020-12-29)
PROC: B2121ZZ Fluoroscopy of Single Coronary Artery Bypass Graft using Low Osmolar Contrast (ICD-10-PCS; 2020-12-29)
PROC: 027034Z Dilation of Coronary Artery, One Artery with Drug-eluting Intraluminal Device, Percutaneous Approach (ICD-10-PCS; 2020-12-30)
DX: I25.710 Atherosclerosis of autologous vein coronary artery bypass graft(s) with unstable angina pectoris (principal); T82.855A Stenosis of coronary artery stent, initial encounter; F17.210 Nicotine dependence, cigarettes, uncomplicated; E78.5 Hyperlipidemia, unspecified; I10 Essential (primary) hypertension; I73.9 Peripheral vascular disease, unspecified; I25.2 Old myocardial infarction; J44.9 Chronic obstructive pulmonary disease, unspecified; I49.3 Ventricular premature depolarization; G89.29 Other chronic pain; Z95.1 Presence of aortocoronary bypass graft; Z95.5 Presence of coronary angioplasty implant and graft; Z79.82 Long term (current) use of aspirin; Z79.899 Other long term (current) drug therapy; K21.9 Gastro-esophageal reflux disease without esophagitis; Z79.02 Long term (current) use of antithrombotics/antiplatelets; Z71.6 Tobacco abuse counseling; Z98.890 Other specified postprocedural states
CPT/HCPCS: 36415; 71045; 76937; 80048; 80053; 84484; 85025; 85049; 85347; 85610; 85730; 93005; 93010; 93306; 93459; 94640; 94664; 94760; 96374; 96375; 96376; 99152; 99153; 99285-25; A9270; C1725; C1769; C1874; C1884; C1887; C1894; C9604; G0278; G0378; J0153; J0360; J1644; J2250; J2405; J2720; J3010; J7030; J7040; J7050; Q9967

== ENCOUNTER 2021-10-15 02:07 | Day surgery (SDC) | payer MEDICARE ==
[~2021-10-15 02:07] MED LIST changes: +METO25 PO; +NITR.4SL SL; +TICA90TA PO
== END 2021-10-15 22:55 | disposition home or self-care (01) ==
LOC: WOUND 02:07
DX: S91.332A Puncture wound without foreign body, left foot, initial encounter (principal); R77.0 Abnormality of albumin; D50.9 Iron deficiency anemia, unspecified; I70.203 Unspecified atherosclerosis of native arteries of extremities, bilateral legs; G90.09 Other idiopathic peripheral autonomic neuropathy; L03.116 Cellulitis of left lower limb; R60.0 Localized edema; F17.210 Nicotine dependence, cigarettes, uncomplicated; J44.9 Chronic obstructive pulmonary disease, unspecified; I25.119 Atherosclerotic heart disease of native coronary artery with unspecified angina pectoris; I10 Essential (primary) hypertension; M19.90 Unspecified osteoarthritis, unspecified site; W22.8XXA Striking against or struck by other objects, initial encounter; Y93.E9 Activity, other interior property and clothing maintenance; Z91.018 Allergy to other foods
CPT/HCPCS: G0463

== ENCOUNTER 2021-10-29 01:01 | Day surgery (SDC) | payer MEDICARE | END 2021-10-29 23:45 | disposition home or self-care (01) | LOC: WOUND 01:01 | DX: S91.332A Puncture wound without foreign body, left foot, initial encounter (principal); R60.0 Localized edema; R77.0 Abnormality of albumin; D50.9 Iron deficiency anemia, unspecified; I70.203 Unspecified atherosclerosis of native arteries of extremities, bilateral legs; G90.09 Other idiopathic peripheral autonomic neuropathy; L03.116 Cellulitis of left lower limb ==

== ENCOUNTER 2021-11-12 03:02 | Day surgery (SDC) | payer MEDICARE | END 2021-11-12 23:25 | disposition home or self-care (01) | LOC: WOUND 03:02 | DX: S91.332D Puncture wound without foreign body, left foot, subsequent encounter (principal); R60.0 Localized edema; R77.0 Abnormality of albumin; D50.9 Iron deficiency anemia, unspecified; I70.203 Unspecified atherosclerosis of native arteries of extremities, bilateral legs; G90.09 Other idiopathic peripheral autonomic neuropathy; L03.116 Cellulitis of left lower limb; I77.1 Stricture of artery; Z72.0 Tobacco use | CPT/HCPCS: 99406; A9270; G0463 ==

== ENCOUNTER 2024-07-06 16:03 | Observation (INO) | payer MEDICARE ==
[~2024-07-06] VITALS: Ht 185.4 cm; Wt 74.0 kg
[2024-07-06 17:20] LABS: BASOPHILS ABSOLUTE AUTO 0.07 K/mm3 (0.00-0.23); BASOPHILS PERCENT AUTO 1 % (0-2); EOSINOPHILS PERCENT AUTO 1 % (0-6); Hematocrit 23.9 % (37.0-53.0); Hemoglobin 6.9 g/dL (13.5-17.5); IMMATURE GRAN ABSOLUTE AUTO 0.05 K/mm3 (0.00-0.10); IMMATURE GRAN PERCENT AUTO 1 % (0-1); LYMPHOCYTES ABSOLUTE AUTO 1.63 K/mm3 (0.84-5.20); LYMPHOCYTES PERCENT AUTO 16 % (21-46); MONOCYTES ABSOLUTE AUTO 0.83 K/mm3 (0.16-1.47); MONOCYTES PERCENT AUTO 8 % (4-13); Mean Corpuscular HGB 18.3 pg (26.0-34.0); Mean Corpuscular HGB Conc 28.9 g/dL (31.5-36.5); Mean Corpuscular Volume 63 fL (80-100); Mean Platelet Volume 10.2 fL (9.1-12.4); NEUTROPHILS ABSOLUTE AUTO 7.57 K/mm3 (1.96-9.15); NEUTROPHILS PERCENT AUTO 74 % (41-73); Platelet Count 476 K/mm3 (150-400); RDW Coefficient Variation 18.6 % (11.7-14.2); Red Blood Cell Count 3.78 M/mm3 (4.30-5.90); White Blood Cell Count 10.25 K/mm3 (4.00-11.30)
[2024-07-06 17:51] LABS: Albumin, Blood 2.6 g/dL (3.4-5.0); Albumin/Globulin Ratio 0.6 (0.8-1.8); Bilirubin, Total 0.7 mg/dL (0.1-1.0); Bun/Creatinine Ratio 12.4 (12.0-20.0); Calcium, Blood 8.7 mg/dL (8.5-10.1); Creatinine, Blood 1.29 mg/dL (0.60-1.20); Globulin, Blood 4.7 g/dL (2.2-4.0); Potassium, Blood 3.5 mmol/L (3.5-5.5); Total Protein, Blood 7.3 g/dL (6.4-8.2)
[2024-07-06] MEDS ORDERED: OxyCODONE 10/Acetamin 325 TABLET PO ONE (20:15)
[2024-07-06] MEDS ORDERED: Losartan Potassium 50 MG Tab PO ONE (20:20)
[2024-07-06] MEDS ORDERED: NS 1,000 ML IV ONE (21:15)
[2024-07-06] MEDS ORDERED: NS 1,000 ML IV SCH (21:40)
[2024-07-06] MEDS ORDERED: FLU VACC TS2024-25(6MOS UP)/PF 45 MCG/0.5 ML SYRINGE IM ONE (22:40)
[2024-07-06] MEDS ORDERED: Nitroglycerin 0.4 MG SUBL SL PRN (22:50)
[2024-07-06 22:57] LABS: Percent Saturation 3.8 % (20.0-50.0)
[2024-07-06] MEDS ORDERED: Furosemide 40 MG Tab PO SCH (23:00)
[2024-07-06] MEDS ORDERED: Norvasc5 MG PO (23:01)
[2024-07-07] VITALS (8 sets, daily range): BP systolic 124–161; BP diastolic 55–71
[2024-07-07] MEDS ORDERED: OxyCODONE HCL 5 MG TAB PO SCH
[2024-07-07] MEDS ORDERED: Ipratropium Bromide INH 0.02% 0.5 mg/2.5ML Vial INH SCH (01:45)
[2024-07-07] MEDS ORDERED: Albuterol HFA200 ACT/6.7 GM INH INH PRN (01:45)
[2024-07-07 05:46] LABS: Hematocrit 25.4 % (37.0-53.0); Hemoglobin 7.7 g/dL (13.5-17.5); Mean Corpuscular HGB 19.6 pg (26.0-34.0); Mean Corpuscular HGB Conc 30.3 g/dL (31.5-36.5); Mean Corpuscular Volume 65 fL (80-100); Mean Platelet Volume 9.7 fL (9.1-12.4); Platelet Count 437 K/mm3 (150-400); RDW Coefficient Variation 20.5 % (11.7-14.2); RDW Standard Deviation 45.6 fL (35.1-46.3); Red Blood Cell Count 3.93 M/mm3 (4.30-5.90)
[2024-07-07] MEDS ORDERED: Omeprazole 20 MG CapCR PO SCH (06:00)
[2024-07-07 06:30] LABS: Bun/Creatinine Ratio 12.5 (12.0-20.0); Calcium, Blood 9.2 mg/dL (8.5-10.1); Creatinine, Blood 1.28 mg/dL (0.60-1.20); Potassium, Blood 3.4 mmol/L (3.5-5.5)
--- NOTE | 2024-07-07 06:55 | NUR ---
SHIFT SUMMARY PT ARRIVED 0041 FROM ED. ADMITTING DX SYMPTOMATIC ANEMIA. PT RECEIVED SINGLE UNIT PRBC'S IN ED BEFORE TRANSFER. HE TAKES SCHEDULED OXYCODONE FOR CHRONIC PAIN. PT LUNGS CLEAR ON LEFT AND WHEEZING ON RIGHT THROUGHOUT. SKIN CLEAR WITH EXCEPTION OF SMALL YELLOW ULCER ON INNER LEFT ANKLE WITH SCALING ON BLE. ULCER IS CLOSED AND NOT DRAINING. PT LYING IN BED COMFORTABLY AND RESTING. PT UP TO BATHROOM APPROX 0235. 0430, REGIONAL CONSTRUCTION MANAGER CALLED WITH INFORMATION PT HAVING BIJEMINAL PVC'S AND PJC'S IN AND OUT, BUT THE UNDERLYING RHYTHM IS STILL SINUS. THIS RN CHECKED ON PT WHO WAS SITTING UP ON THE SIDE OF HIS BED, COMPLAINING OF PAIN AND STATED HE HAS RESTLESS LEGS AND NEEDED SOMETHING TO HELP. PT MEDICATED FOR PAIN PER EMAR.
[2024-07-07] MEDS ORDERED: Gabapentin 300 MG Cap PO SCH (08:00)
[2024-07-07] MEDS ORDERED: Nicotine 14 MG PATCH TOP SCH (09:00)
[2024-07-07] MEDS ORDERED: Furosemide 10 MG / ML 2ML Vial IV SCH (09:00)
[2024-07-07] MEDS ORDERED: Sod Ferric Gluc Complx/Sucrose 125 MG in NS 100 ML IV SCH (09:00)
[2024-07-07] MEDS ORDERED: Losartan Potassium 50 MG Tab PO SCH (09:00)
[2024-07-07] MEDS ORDERED: Potassium Chloride 20 MEQ TabCR PO SCH (09:00)
[2024-07-07] MEDS ORDERED: Docusate Sodium 100 MG Cap PO SCH (09:00)
[2024-07-07] MEDS ORDERED: Multivitamins 1 Tab PO SCH (09:00)
[2024-07-07] MEDS ORDERED: Misc. Tablet PO SCH (09:00)
[2024-07-07] MEDS ORDERED: Atorvastatin 40 MG Tab PO SCH (09:00)
[2024-07-07] MEDS ORDERED: Aspirin 81 MG TabEC PO SCH (09:00)
[2024-07-07] MEDS ORDERED: Isosorbide Mononitrate 60 MG TABCR PO SCH (09:00)
[2024-07-07] MEDS ORDERED: Metoprolol Tartrate 25 MG Tab PO SCH (09:00)
[2024-07-07] MEDS ORDERED: Ticagrelor 90 MG TABLET PO SCH (09:00)
[2024-07-07] MEDS ORDERED: NS 250 ML IV PRN (10:50)
[2024-07-07 15:45] LABS: Hematocrit 28.5 % (37.0-53.0); Hemoglobin 8.6 g/dL (13.5-17.5)
[2024-07-07 15:53] LABS: IMMATURE RETIC FRACTION 40.9 % (2.3-16.0); RETIC HGB EQUIVALENT 19.7 pg (28.20-36.60); RETICULOCYTE ABSOLUTE 0.0472 M/mm3 (0.0200-0.1100); RETICULOCYTE COUNT PERCENT 1.12 % (0.50-2.50)
[2024-07-07] MEDS ORDERED: Nicoderm Cq1 EAC1 TOP (16:27)
[2024-07-07] MEDS ORDERED: FERSU300 PO (16:27)
[2024-07-07] MEDS ORDERED: ATOR80 PO (16:27)
--- NOTE | 2024-07-07 16:50 | NUR ---
PATIENT D/C'D TO HOME. DC ISNTRUCTIONS AND EDUCATIONS DISCUSSED WITH PATIENT AND COPY PROVIDED. HARD SCRIPT FOR FOLLOW UP LABS GIVEN TO PATIENT. PATIENT DENIES ANY FURTHER QUESTIONS OR CONCERNS.
== END 2024-07-07 16:42 | disposition home or self-care (01) ==
LOC: ER 16:03 → MEDS 16:04
PROVIDERS: Family Medicine; Physician Assistant; ADMIT Internal Medicine
DX: D64.9 Anemia, unspecified (principal); I25.10 Atherosclerotic heart disease of native coronary artery without angina pectoris; I25.2 Old myocardial infarction; J44.9 Chronic obstructive pulmonary disease, unspecified; I12.9 Hypertensive chronic kidney disease with stage 1 through stage 4 chronic kidney disease, or unspecified chronic kidney disease; N18.30 Chronic kidney disease, stage 3 unspecified; G89.29 Other chronic pain; M79.669 Pain in unspecified lower leg; I73.9 Peripheral vascular disease, unspecified; F17.210 Nicotine dependence, cigarettes, uncomplicated; Z79.82 Long term (current) use of aspirin; Z79.899 Other long term (current) drug therapy; Z95.5 Presence of coronary angioplasty implant and graft
CPT/HCPCS: 36415; 36430; 80048; 80053; 82728; 83540; 83550; 85014; 85018; 85025; 85027; 85045; 86850; 86900; 86901; 86923; 94640; 94664; 94760; 96365; 96366; 99284-25; A9270; G0378; J2916; J7030; P9016